=== PATIENT | female | born 1985 | race African-American/Black ===

== ENCOUNTER 2021-11-05 17:47 | Day surgery (SDC) | payer SELFPAY ==
[~2021-11-05] VITALS: Ht 167.6 cm; Wt 77.1 kg
[2021-11-05 17:47] VITALS: BP_SYST 116
[~2021-11-05 17:47] MED LIST: CEFAZOLIN 2 GM IVPB PREMIX 50 ML IV ONE; LR 1,000 ML IV.SOLN IV ONE; NS IRRIG SOLN 1000 ML IR ONE; PROPOFOL 200MG/ 20ML VIAL (DIPRIVAN) IV ONE; SEVOFLURANE 15 MIN GAS INH ONE
[2021-11-05] MEDS ORDERED: MORPHINE 4 MG INJ. 4 MG/ML VIAL ONE (18:01)
[2021-11-05] MEDS ORDERED: ONDANSETRON 4 MG ODT TAB ONE (18:02)
[2021-11-05] MEDS ORDERED: ONDANSETRON HCL 4 MG/2 ML VIAL ONE (18:02)
[2021-11-05] MEDS ORDERED: ONDANSETRON HCL 4 MG/2 ML VIAL IVP ONE ×2 (18:15→23:15)
[2021-11-05] MEDS ORDERED: MORPHINE 4 MG INJ. 4 MG/ML VIAL IVP ONE ×3 (18:15→23:15)
[2021-11-05] MEDS ORDERED: NACL 0.9% 1,000 ML IV ONE ×2 (18:15→19:45)
[2021-11-05 18:39] LABS: BASOPHILS # (AUTO) 0.1 K/uL (0.0-0.2); BASOPHILS % (AUTO) 0.6 % (0.0-2.0); EOSINOPHILS % (AUTO) 0.1 % (0.0-4.0); HEMATOCRIT 28.8 % (36-48); HEMOGLOBIN 9.7 g/dL (12.0-16.0); LYMPHOCYTES # (AUTO) 0.8 K/uL (1.0-5.5); LYMPHOCYTES % (AUTO) 5.8 % (20.5-51.5); MEAN CORPUSCULAR HEMOGLOBIN 28 pg (27-31); MEAN CORPUSCULAR HGB CONC 34 % (32-36); MEAN CORPUSCULAR VOLUME 83 fL (79.0-98.0); MONOCYTES # (AUTO) 1.3 K/uL (0.0-1.0); MONOCYTES % (AUTO) 8.9 % (1.7-9.3); NEUTROPHILS # (AUTO) 11.9 K/uL (1.8-7.7); NEUTROPHILS % (AUTO) 84.6 % (40.0-70.0); PLATELET COUNT (AUTO) 350 K/uL (130-430); RED BLOOD CELL COUNT(AUTO) 3.48 MIL/uL (4.2-6.2); RED CELL DISTRIBUTION WIDTH 12.7 % (9.0-15.0); WHITE BLOOD COUNT (AUTO) 14.1 K/uL (4.8-10.8)
[2021-11-05 19:01] LABS: CALCIUM 7.6 mg/dL (8.4-11.0); CREATININE 0.8 mg/dL (0.55-1.30); POTASSIUM 3.3 mmol/L (3.5-5.1)
[2021-11-05 19:37] LABS: ALBUMIN 2.5 g/dL (3.4-4.8); TOTAL BILIRUBIN 0.4 mg/dL (0.0-1.0)
[2021-11-05] MEDS: OXYTOCIN/0.9 % SODIUM CHLORIDE 1,000 ML IV SCH (22:42)
[2021-11-06 00:25] LABS: BILIRUBIN,URINE NEGATIVE (NEGATIVE); BLOOD, URINE 3+ (NEGATIVE); CLARITY/URINE CLEAR (CLEAR); GLUCOSE,URINE NEGATIVE (NEGATIVE); KETONES,URINE 2+ (NEGATIVE); LEUKOCYTE ESTERASE ,URINE 1+ (NEGATIVE); NITRITE, URINE POSITIVE (NEGATIVE); PH,URINE 5.5 (5.0-8.0); PROTEIN URINE 2+ (NEGATIVE)
[2021-11-06 00:26] LABS: COLOR,URINE RED (YELLOW)
[2021-11-06 00:55] LABS: RBC,URINE >100 /HPF (0-3)
[2021-11-06 01:03] LABS: BACTERIA,URINE None Seen /HPF (None Seen); MUCUS,URINE None Seen /LPF (None Seen); WBC,URINE 0-3 /HPF (0-3)
[2021-11-06] MEDS ORDERED: fentaNYL CITRATE/PF 100 MCG/2 ML AMP IVP PRN ×2 (01:15)
[2021-11-06] MEDS ORDERED: METOCLOPRAMIDE HCL 10 MG/2 ML VIAL IVP PRN (01:15)
[2021-11-06] MEDS ORDERED: ONDANSETRON HCL 4 MG/2 ML VIAL IVP PRN (01:15)
[2021-11-06 01:20] VITALS: BP_SYST 137
[2021-11-06] MEDS ORDERED: OXYTOCIN 10 UNIT/ML VIAL ONE (01:33)
[2021-11-06] MEDS ORDERED: OXYTOCIN/0.9 % SODIUM CHLORIDE 1,000 ML IV SCH ×2 (02:15→02:30)
[2021-11-06] MEDS: OXYTOCIN/0.9 % SODIUM CHLORIDE 1,000 ML IV SCH (02:21)
[2021-11-06] MEDS ORDERED: OXYCODONE/ACETAMINOPHEN 5-325 TABLET PO PRN ×2 (04:00)
[2021-11-06] MEDS ORDERED: IBUPROFEN 600 MG TABLET PO PRN (04:00)
== END 2021-11-06 10:12 | disposition home or self-care (01) ==
LOC: SED 17:47 → SPU 22:10 → SDS 11-06 02:18 → SPU 11-06 02:47 → UNDOADMIN 11-06 02:47 → UNDODISIN 11-06 10:12 → SDS 11-06 10:12
PROVIDERS: ATTEND Specialist
DX: O03.4 Incomplete spontaneous abortion without complication (principal); Z20.822 Contact with and (suspected) exposure to COVID-19
CPT/HCPCS: 80053; 84702; 85025; 86886; 86900; 86901; 36415; 99285; 96361; 96365; 87426; 59812; 81000; 96367; 88305; Q0162; J0690; J2405; J2704; J2270; J7120; J7030; J2590; J7040